=== PATIENT | female | born 1985 | race Caucasian/White ===

== ENCOUNTER 2019-11-07 13:46 | Emergency (ER) | payer MEDICAID ==
[~2019-11-07] VITALS: Ht 170.2 cm; Wt 78.0 kg
[~2019-11-07 13:46] MED LIST: FERR-63 PO; MULT-1116 PO
[2019-11-07] MEDS: ACETAMINOPHEN 325MG TABLET PO PRN ×2 (14:54→15:46)
[2019-11-07 15:16] LABS: BASOPHILS % 0.5 % (0.0-2.0); HEMATOCRIT. 43.5 % (36.0-48.0); HEMOGLOBIN. 14.7 g/dL (12.0-16.0); LYMPHOCYTES % 26.8 % (20.0-50.0); MEAN CORPUSCULAR HEMOGLOBIN 28.5 pg (28.0-32.0); MEAN CORPUSCULAR VOLUME 84.7 fL (81.0-99.0); MEAN PLATELET VOLUME 10.5 fl (7.4-10.4); NEUTROPHILS % 66.7 % (40.0-76.0); PLATELET 200 x1000/uL (130-400); RED BLOOD CELL COUNT 5.14 mill/uL (4.2-5.4); RED CELL DISTRIBUTION WIDTH 14.2 % (11.6-14.6)
[2019-11-07 15:23] LABS: CHLORIDE 105 mEq/L (98-107)
[2019-11-07 15:48] LABS: B-HCG QUANTITATIVE 6871 mIU/mL (<3)
[2019-11-07 16:16] LABS: COLOR URINE YELLOW (YELLOW); KETONES URINE 3+ (NEGATIVE); LEUKOCYTE ESTERASE URINE NEGATIVE (NEGATIVE); NITRITE URINE NEGATIVE (NEGATIVE); OCCULT BLOOD URINE 2+ (NEGATIVE); PROTEIN URINE NEGATIVE (NEGATIVE); SPECIFIC GRAVITY URINE 1.038 (1.005-1.030); UROBILINOGEN URINE 0.2 E.U./dL (0.2-1.0)
[2019-11-07 16:20] LABS: CLARITY URINE HAZY (CLEAR)
[2019-11-07 17:24] VITALS: BP 136/84
== END 2019-11-07 17:24 | disposition home or self-care (01) ==
LOC: ER 13:46
DX: O20.0 Threatened abortion (principal); O26.891 Other specified pregnancy related conditions, first trimester; R82.71 Bacteriuria; Z98.890 Other specified postprocedural states; Z3A.01 Less than 8 weeks gestation of pregnancy
CPT/HCPCS: 36415; 76801; 80053; 81003; 81025; 84702; 85025; 86850; 86900; 93005; 99285

== ENCOUNTER 2019-11-09 14:39 | Day surgery (SDC) | payer MEDICAID ==
[~2019-11-09] VITALS: Ht 170.2 cm; Wt 77.0 kg
[2019-11-09 16:14] LABS: BASOPHILS % 0.7 % (0.0-2.0); CHLORIDE 106 mEq/L (98-107); EOSINOPHILS % 1.3 % (0.0-5.0); HEMATOCRIT. 38.5 % (36.0-48.0); HEMOGLOBIN. 13.4 g/dL (12.0-16.0); LYMPHOCYTES % 24.3 % (20.0-50.0); MEAN CORPUSCULAR VOLUME 83.4 fL (81.0-99.0); MEAN PLATELET VOLUME 10.5 fl (7.4-10.4); MONOCYTES % 6.4 % (2.0-8.0); NEUTROPHILS % 67.3 % (40.0-76.0); PLATELET 203 x1000/uL (130-400); RED BLOOD CELL COUNT 4.62 mill/uL (4.2-5.4); RED CELL DISTRIBUTION WIDTH 14.4 % (11.6-14.6)
[2019-11-09 16:36] LABS: B-HCG QUANTITATIVE 1719 mIU/mL (<3)
[2019-11-09 18:11] VITALS: BP 119/73
[2019-11-09] MEDS ORDERED: PROPOFOL 200MG/20ML VIAL IV ONE (19:25)
[2019-11-09] MEDS ORDERED: FENTANYL CITRATE/PF 50MCG/ML 2ML VIAL ONE (19:25)
[2019-11-09] MEDS ORDERED: MIDAZOLAM HCL 2 MG/2 ML VIAL ONE (19:25)
[2019-11-09] MEDS ORDERED: METOCLOPRAMIDE HCL 10MG/2ML VIAL ONE (19:26)
[2019-11-09] MEDS ORDERED: ONDANSETRON HCL 4MG/2ML INJ ONE (19:26)
[2019-11-09] MEDS ORDERED: KETOROLAC 30MG/ML VIAL ONE (19:26)
[2019-11-09] MEDS ORDERED: RHO(D) IMMUNE GLOBULIN 300 MCG/SYR IM NR (20:00)
[2019-11-09] MEDS ORDERED: IBUPROFEN 800MG TABLET PO NR (20:00)
[2019-11-09] MEDS ORDERED: HYDROMORPHONE HCL/PF 2MG/ML CPJ IV PRN (20:09)
[2019-11-09] MEDS ORDERED: ONDANSETRON HCL 4MG/2ML INJ IV PRN (20:10)
[2019-11-09] MEDS ORDERED: MEPERIDINE HCL/PF 25MG/ML CPJ IV PRN (20:10)
== END 2019-11-09 21:40 | disposition home or self-care (01) ==
LOC: ER 14:39 → OR 19:25 → ER 19:29 → ENRESERV 20:01 → OR 21:40 → CANBEDREQ 23:06
PROVIDERS: ATTEND Obstetrics & Gynecology
DX: O03.4 Incomplete spontaneous abortion without complication (principal); N93.9 Abnormal uterine and vaginal bleeding, unspecified; E11.9 Type 2 diabetes mellitus without complications; Z79.899 Other long term (current) drug therapy; Z98.890 Other specified postprocedural states; Z82.49 Family history of ischemic heart disease and other diseases of the circulatory system; Z83.3 Family history of diabetes mellitus
CPT/HCPCS: 36415; 59812; 76801; 76817; 80053; 84702; 85025; 86850; 86900; 86901; 88305; 93005; 99285; J1885; J2250; J2405; J2704; J2765; J3010